=== PATIENT | female | born 1990 | race Caucasian/White ===

== ENCOUNTER 2017-01-09 10:44 | Outpatient (RCR) | payer OTHER | END 2017-02-03 07:51 | disposition still patient (30) | LOC: WSOH 10:44 | DX: S61.012A Laceration without foreign body of left thumb without damage to nail, initial encounter (principal); W26.0XXA Contact with knife, initial encounter; Y99.0 Civilian activity done for income or pay ==

== ENCOUNTER 2017-07-02 10:08 | Emergency (ER) | payer MEDICAID ==
[~2017-07-02] VITALS: Ht 170.2 cm; Wt 109.1 kg
[2017-07-02 10:11] VITALS: BP 130/84; PULSE 71; TEMP 98.3
[2017-07-02] MEDS ORDERED: PRENATAL (10:14)
== END 2017-07-02 13:17 | disposition home or self-care (01) ==
LOC: COL.ER 10:08
DX: O20.0 Threatened abortion (principal); Z3A.01 Less than 8 weeks gestation of pregnancy; F17.210 Nicotine dependence, cigarettes, uncomplicated